=== PATIENT | male | born 1945 | race Caucasian/White ===

== ENCOUNTER 2018-01-27 07:24 | Day surgery (SDC) | payer OTHER, MEDICARE ==
[2018-01-27] MEDS: NS 1,000 ML IV (07:52)
[2018-01-27] MEDS ORDERED: LIDOCAINE 2% INJ 100 MG/5 ML SDV (FOR ANES.) As Ordered (08:52)
[2018-01-27] MEDS ORDERED: PROPOFOL 200 MG/20 ML VIAL As Ordered (08:52)
== END 2018-01-27 09:58 | disposition home or self-care (01) ==
LOC: M OPP 07:24
DX: Z12.11 Encounter for screening for malignant neoplasm of colon (principal); D12.2 Benign neoplasm of ascending colon; K57.30 Diverticulosis of large intestine without perforation or abscess without bleeding; K21.9 Gastro-esophageal reflux disease without esophagitis; K44.9 Diaphragmatic hernia without obstruction or gangrene; K29.70 Gastritis, unspecified, without bleeding; I10 Essential (primary) hypertension; E78.00 Pure hypercholesterolemia, unspecified; Z79.82 Long term (current) use of aspirin; Z79.899 Other long term (current) drug therapy; Z88.8 Allergy status to other drugs, medicaments and biological substances; Z87.891 Personal history of nicotine dependence
CPT/HCPCS: 45380

== ENCOUNTER 2018-10-05 19:52 | Emergency (ER) | payer MEDICARE, OTHER ==
[~2018-10-05] VITALS: Ht 180.3 cm; Wt 84.5 kg
[~2018-10-05 19:52] MED LIST: /HCTZ25TA OR; ASPI1TAB PO; ASPI32ECTA GT; ATOR1TAB19 PO; BAYE325T12 PO; KLOR20TA PO; MAGN64TASA PO; METO1TAB32 PO; OMEP20CA3 PO; PRIN10TA PO; RANI150T PO; SLOWTAB2 PO
[2018-10-05] MEDS ORDERED: PERCOCET 5MG/325MG TAB PO ONE (21:15)
[2018-10-05 21:33] LABS: BASO # 0.1 10^3/uL (0.0-0.2); BASO % 0.7 % (0.0-1.0); EOS # 0.2 10^3/uL (0.0-0.50); EOS % 2.1 % (0.0-3.0); HEMATOCRIT 40.5 % (42.0-52.0); HEMOGLOBIN 13.5 g/dl (13.5-17.5); LYMPH # 1.8 10^3/uL (1.5-4.5); LYMPH % 25.3 % (24.0-44.0); MEAN CORPUSCULAR HEMOGLOBIN 28.5 pg (27.0-33.0); MEAN CORPUSCULAR HGB CONC 33.3 g/dl (32.0-36.5); MEAN CORPUSCULAR VOLUME 85.6 fl (80.0-96.0); MONO # 0.6 10^3/uL (0.0-0.8); MONO % 8.8 % (0.0-5.0); NEUTROPHILS # 4.5 10^3/uL (1.8-7.7); PLATELET COUNT, AUTOMATED 199 10^3/uL (150-450); RED BLOOD COUNT 4.73 10^6/uL (4.30-6.10); WHITE BLOOD COUNT 7.2 10^3/uL (4.0-10.0)
[2018-10-05 22:04] LABS: CALCIUM LEVEL 8.2 MG/DL (8.8-10.2); CREATININE FOR GFR 1.27 MG/DL (0.70-1.30); GLOMERULAR FILTRATION RATE 59.3 (>42)
--- NOTE | 2018-10-05 22:18 | REPVR ---
EXAM: CT Thoracic Spine Without Contrast EXAM DATE/TIME: 10/05/2018 9:44 PM CLINICAL HISTORY: 73 years old, male; Pain; Pain in thoracic spine; Additional info: Back pain eval for FX TECHNIQUE: Axial computed tomography images of the thoracic spine without intravenous contrast. All CT scans at this facility use at least one of these dose optimization techniques: automated exposure control; mA and/or kV adjustment per patient size (includes targeted exams where dose is matched to clinical indication); or iterative reconstruction. Coronal and sagittal reformatted images were created and reviewed. COMPARISON: No relevant prior studies available. FINDINGS: Vertebrae: There is scoliosis of the thoracic spine. There is no evidence of fracture. The facet joints appear in alignment. There is anterior osteophyte formation of the thoracic spine. Discs/Spinal canal/Neural foramina: There is no evidence of central spinal canal stenosis. There is no evidence of soft tissue swelling. IMPRESSION: 1. Degenerative changes and scoliosis. 2. No evidence of fracture. Electronically signed by: Nelson Garg On 10/05/2018 22:18:14 PM
--- NOTE | 2018-10-05 22:28 | REPVR ---
EXAM: CT Lumbar Spine Without Contrast EXAM DATE/TIME: 10/05/2018 9:44 PM CLINICAL HISTORY: 73 years old, male; Pain; Low back pain; Additional info: Back pain eval for FX TECHNIQUE: Axial computed tomography images of the lumbar spine without intravenous contrast. All CT scans at this facility use at least one of these dose optimization techniques: automated exposure control; mA and/or kV adjustment per patient size (includes targeted exams where dose is matched to clinical indication); or iterative reconstruction. Coronal and sagittal reformatted images were created and reviewed. COMPARISON: No relevant prior studies available. FINDINGS: There is scoliosis lumbar spine convexity to the left. There is no evidence of fracture or. Probable large cyst right kidney. Probable large cyst left kidney. I would correlate with ultrasound however. There is calcification of the aorta consistent with atherosclerotic changes. There is no evidence of acute fracture or. L5-S1: There is narrowing of the disc space with mild posterior osteophyte formation. There is severe left L5 neural foramina narrowing. L4-L5: There is a large posterior disc protrusion and grade 1 spondylolisthesis of L4 on L5. This produces severe central spinal canal stenosis and severe bilateral L4 neural foramina narrowing. There is severe facet hypertrophy. L3-L4: There is moderate disc protrusion causing mild impression on the thecal sac. L2-L3: There is posterior osteophyte formation causing mild impression on the thecal sac. L1-L2: There is a large posterior osteophyte causing moderate impression on the thecal sac. There is severe degenerative changes of the vertebral endplates with sclerosis of the endplates and narrowing of disc space L1-L2. IMPRESSION: 1. No evidence of fracture. 2. Degenerative changes as described above including severe central spinal canal stenosis and neural foramina narrowing L4-L5. 3. Probable large cysts right and left kidney but this should be confirmed with ultrasound. Electronically signed by: Nelson Garg On 10/05/2018 22:28:17 PM
[2018-10-05] MEDS ORDERED: PERC5TAB12 PO (22:55)
[2018-10-05 23:00] VITALS: BP 104/74
--- NOTE | 2018-10-07 08:19 | ED PDOC ---
Post-Departure Follow-Up dr rob faxed formal report of ct c ls spine,for fu Kristy Bass MD Oct 07, 2018 08:19
== END 2018-10-05 23:10 | disposition home or self-care (01) ==
LOC: EDBD 19:52 → M ED 22:48
DX: M48.00 Spinal stenosis, site unspecified (principal); M54.9 Dorsalgia, unspecified

== ENCOUNTER 2019-06-10 07:36 | Inpatient (IN) | payer MEDICARE, OTHER ==
[~2019-06-10] VITALS: Ht 177.8 cm; Wt 87.8 kg
[~2019-06-10 07:36] MED LIST changes: -/HCTZ25TA OR; -ASPI1TAB PO; +ASPI81TA26 PO; +HYDR-3644 OR; +PERC5TAB12 PO
[2019-06-10] MEDS ORDERED: ISOVUE-370 76% 100ML VIAL (Q9967) As Ordered ONE (08:25)
--- NOTE | 2019-06-10 09:12 | REP ---
CT BRAIN WITHOUT IV CONTRAST: COMPARISON: 07/05/2013. There is mild atrophy. There is no midline shift or mass effect. There are minor periventricular small vessel ischemic changes. No acute hemorrhage is seen. Old small parenchymal calcification is seen in the left temporal lobe. There is a stable small area of increased density in the right posterior thalamic region. There is no acute intracranial hemorrhage or extra-axial fluid collection. Falx calcifications are noted. There are mild vascular calcifications in the carotid siphons. There is mucosal thickening and fluid in the right ethmoids. There is mild mucosal thickening in the left sphenoid sinus. There is a retention cyst or polyp in the right maxillary sinus 1 cm in diameter. IMPRESSION: No acute intracranial findings. Electronically Signed by Kendall Mcclelland MD 06/11/2019 05:47 P
--- NOTE | 2019-06-10 09:13 | REP ---
CHEST, SINGLE VIEW: Single view of the chest is performed and compared to prior study of 07/24/2015. There is bibasilar fibroatelectatic change without consolidating infiltrate. The heart does not appear to be significantly enlarged. There is tortuosity of the thoracic aorta. IMPRESSION: Bibasilar fibroatelectatic change. Electronically Signed by Kendall Mcclelland MD 06/11/2019 05:47 P
[2019-06-10 09:18] LABS: BASO # 0.1 10^3/uL (0.0-0.2); BASO % 0.6 % (0.0-1.0); EOS # 0.1 10^3/uL (0.0-0.5); EOS % 1.6 % (0.0-3.0); HEMATOCRIT 31.2 % (42.0-52.0); HEMOGLOBIN 10.3 g/dl (13.5-17.5); LYMPH # 1.4 10^3/uL (1.5-5.0); MEAN CORPUSCULAR HEMOGLOBIN 28.7 pg (27.0-33.0); MEAN CORPUSCULAR VOLUME 86.9 fl (80.0-96.0); MONO # 0.6 10^3/uL (0.0-0.8); MONO % 7.1 % (0.0-5.0); NEUTROPHILS # 6.7 10^3/uL (1.5-8.5); NEUTROPHILS % 74.3 % (36.0-66.0); PLATELET COUNT, AUTOMATED 193 10^3/uL (150-450); RED BLOOD COUNT 3.59 10^6/uL (4.30-6.10)
[2019-06-10] MEDS ORDERED: ACET-897 PO (09:25)
[2019-06-10] MEDS ORDERED: LISI-538 PO (09:25)
[2019-06-10] MEDS ORDERED: CALC1TAB74 PO (09:25)
--- NOTE | 2019-06-10 09:28 | REP ---
CT ANGIOGRAM OF THE CAROTID ARTERIES: CT angiogram carotid arteries performed following the intravenous administration of 100 mL of Isovue-370. Sagittal, coronal, and 3D MIP reconstruction images are performed. There is mild scattered atherosclerotic calcifications of the aortic arch and carotid bulbs and proximal internal carotid arteries. There is no evidence of internal carotid artery occlusion or significant stenosis. Vertebral arteries are patent. They appear fairly symmetrical bilaterally. There is moderate narrowing of the proximal left subclavian artery. Right subclavian artery is patent. Visualized lung apices are clear. There are degenerative changes of the spine. No adenopathy is seen in the soft tissues of the neck. IMPRESSION: No evidence of carotid artery occlusion or significant stenosis. Electronically Signed by Kendall Mcclelland MD 06/11/2019 05:48 P
--- NOTE | 2019-06-10 09:31 | REP ---
CT ANGIOGRAM BRAIN: CT angiogram of the brain is performed following the intravenous administration of 100 mL of Isovue-370. Sagittal, coronal and 3D MIP reconstruction images are performed. Vertebral arteries and basilar artery are patent without definite stenosis. There is mild calcification in the carotid siphons bilaterally with mild narrowing. Anterior, middle and posterior cerebral arteries are patent and symmetrical without visible narrowing. Anterior communicating arteries are patent. There is a patent left posterior communicating artery. There may be a tiny right posterior communicating artery. I see no aneurysm or AVM. IMPRESSION: No evidence of intracranial artery occlusion or significant stenosis. Electronically Signed by Kendall Mcclelland MD 06/11/2019 05:48 P
[2019-06-10 09:35] LABS: INR 1.1
[2019-06-10 09:36] LABS: PARTIAL THROMBOPLASTIN TIME 31.9 SECONDS (25.0-38.4)
[2019-06-10 09:39] LABS: CK-MB VALUE MASS 1.4 NG/ML (<3.6); CPK CREATINE PHOSPHOKINASE 102 U/L (39-308); MB/CK RELATIVE INDEX 1.37 (< OR =4); TROPONIN I < 0.02 NG/ML (< 0.10)
[2019-06-10] MEDS ORDERED: ATORVASTATIN 20 MG TAB PO ONE (11:00)
[2019-06-10] MEDS: ASPIRIN 325 MG TAB PO SCH (11:04)
[2019-06-10] MEDS ORDERED: ACETAMINOPHEN 500 MG TAB PO ONE (11:30)
[2019-06-10] MEDS ORDERED: ACETAMINOPHEN 500 MG TAB PO PRN (11:30)
[2019-06-10] MEDS: GABAPENTIN 100 MG CAP PO SCH ×4 (14:30→20:23)
[2019-06-10] MEDS ORDERED: CLOPIDOGREL 75 MG TAB PO SCH (15:00)
[2019-06-10] MEDS ORDERED: CLOPIDOGREL 75 MG TAB PO ONE (15:15)
--- NOTE | 2019-06-10 15:31 | REP ---
CT of the brain without IV contrast: Comparisons are the study performed at 08:21 a.m. earlier today and a prior study of 07/05/2013. There is no hemorrhage. There is no edema, mass effect or midline shift. There is mild diffuse cortical atrophy, unchanged. The cortical stripe is unremarkable. There is a chronic calcification in the left temporal lobe, unchanged from both prior studies. There are degenerative calcifications of the falx, unchanged. There is ethmoid sinusitis, unchanged from study earlier today. There is a right maxillary sinus polyp/cyst, unchanged from study earlier today. Impression: No hemorrhage, edema, mass effect or shift. No change from study earlier today or from 07/05 2013. Electronically Signed by Kendall Penn MD 06/10/2019 03:22 P
[2019-06-10 15:45] VITALS: BP 132/78
--- NOTE | 2019-06-10 15:46 | ECGEPIP ---
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
[2019-06-10] MEDS ORDERED: traMADol 50 MG TAB PO ONE (17:00)
[2019-06-10] MEDS ORDERED: LIDOCAINE 5% (LIDODERM) PATCH TD SCH (17:00)
[2019-06-10] MEDS ORDERED: NS 1,000 ML IV ONE (17:00)
[2019-06-10] MEDS: LIDOCAINE 5% (LIDODERM) PATCH TD SCH (17:10)
--- NOTE | 2019-06-10 19:07 | HPE ---
DATE OF ADMISSION: 06/10/2019 CHIEF COMPLAINT: Left face, arm, and leg numbness. HISTORY OF PRESENT ILLNESS: This is a 74-year-old male with a past medical history significant for recent L4-5, S1 laminectomy and fusion surgery this past Wednesday, [facility], by Dr. Richardson. Had been discharged home and had been dealing with his pain using Tylenol. Woke up at 5 o'clock this morning, awakening his at 6:30 complaining of feeling numbness in the left face, arm, and leg. Patient had word-finding difficulties and was very slow to speak. According to the , he was appropriate, but he was stuttering and taking a few seconds before he could get the words out. Since he had been discharged he had been doing well at home and was getting up. Usually lies in bed or reclining chair for a few days with some difficulty sleeping at night. Patient had been off of his aspirin due to recent surgery, when he was instructed not to take any antiplatelet medications for 7 days. Patient's then called the orthopedic surgeon due to this neurologic change with numbness along the left leg. They had encouraged them to call emergency medical services (EMS). When EMS arrived, patient's symptoms had slightly resolved. On arrival to the emergency room (ER), the left-sided facial numbness has improved slightly. CT at 8:36 a.m. of the head showed no acute intracranial findings. CT angiogram (CTA) of the neck shows no evidence of carotid artery occlusion or significant stenosis. CTA of the brain showed no evidence of intracranial artery occlusion or significant stenosis. Dr. Phoenix, emergency room physician, contacted [facility] due to recent lumbar laminectomy. Patient was not a candidate for tPA. Family was made aware, and hospitalist was called to admit for workup of cerebrovascular accident (CVA) and treatment. Patient was given one dose of 325 mg of aspirin. He then developed worsening symptoms with increasing numbness at around 1:30 p.m., at which point he was re-imaged with repeat CT showing no significant change. No hemorrhage, edema, mass effect, or shift. At this point, neurologist motion picture cameraman, Dr. Beauchamp, recommended addition of Plavix 75 mg as well as gabapentin 100 three times a day as well as permissive hypertension. In the ER his blood pressure was ranging from 111-125. He was given normal saline 1 liter bolus for systemic hypertension goal of 160-180. Patient's telemetry strips remained sinus rhythm. EKG with sinus with no arrhythmias. Patient's glucose on arrival was within normal at 105. PAST MEDICAL HISTORY: 1. Hypertension. 2. Reflux disease. 3. Alcoholic cardiomyopathy. Follows with mental health counselor, Dr. Crooks. 4. Hypercholesterolemia. PAST SURGICAL HISTORY: 1. Left hand surgery with screw placement due to trauma. 2. Left shoulder rotator cuff injury. 3. Hernia repair. 4. Left knee arthroscopy. 5. L4-5, S1 laminectomy with fusion surgery this past Wednesday, May 2019. HOME MEDICATIONS: - Aspirin has been held due to recent surgery, but usually takes 81 mg daily. - atorvastatin 10 mg at bedtime - vitamin D/calcium 600/400 two tablets twice a day - acetaminophen 1 gram by mouth three times a day as needed for pain - lisinopril 20 mg daily - magnesium oxide 128 mg twice a day - metoprolol 25 mg at bedtime - ranitidine 150 twice a day ALLERGIES: OXYCODONE, causing nausea. Usually uses just Tylenol for pain. SOCIAL HISTORY: Lives with at home. Quit smoking in 1968. Previously smoked two packs per day. Chronic alcoholic. Quit 6 years ago due to ischemic cardiomyopathy. 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 [place] and a back door and railing recently placed by his [id number]. Lives at home with his . REVIEW OF SYSTEMS: Per history of present illness (HPI). A 12-point system otherwise negative. PHYSICAL EXAMINATION: Temperature 98.3, pulse 109, sinus, respiratory rate 19, blood pressure 131/100, 94% on room air. Generally, patient does have a mild left-sided facial droop. He does have word-finding difficulties. It takes him about 2-3 seconds to form his words. He does not have any significant slurring of speech. He is comprehensible. Tongue is midline. No pronator drift. Patient has previous left hand surgery with some chronic contraction with flexion at the wrist. He has decreased sensation on the left face, forehead, cheeks, and chin as well as along the left upper and lower arm, left leg as well. Motor function is intact, 5/5 times four extremities but limited due to pain in the back and unable to fully raise bilateral lower extremities due to severe pain in his back. Patient does have a stage II ulcer located in the lumbar area and point tenderness. LABORATORY DATA: White count 9, hemoglobin 10, hematocrit 31, platelet count 193. Total CK 102, MB fraction 1.4, troponin less than 0.02, INR 1.10, PTT 31, PT of 14. Sodium 139, potassium 3.5, chloride 104, bicarbonate 24, BUN 9, creatinine is 0.9, glucose 105. IMAGING STUDIES: June 10, CTA of the neck: No evidence of carotid artery occlusion or significant stenosis. CT of the head at 8 a.m.: No acute intracranial finding. Chest x-ray: Bibasilar fibroatelectatic changes. Repeat CT of the head at 1422: No hemorrhage, edema, mass effect, or shift. No change from prior study. ASSESSMENT AND PLAN: This is a 74-year-old male with a history of hypertension, reflux, prior history of smoking, alcoholic cardiomyopathy, hypercholesterolemia, chronic back pain with recent L4-5, S1 laminectomy and fusion, presents with acute onset of left-sided facial, arm, and leg numbness without motor dysfunction with slight word-finding difficulty, slow to speak but appropriate. This was documented at 6:30 a.m. by the . At 8 a.m., imaging studies were negative. Repeat imaging studies at 1422 were also negative. Echocardiogram is pending. Telemetry with sinus rhythm. CURRENT ISSUES: 1. Left-sided numbness with possible thalamic stroke. Patient is currently on aspirin and Plavix, which has been discussed with the patient's orthopedic surgeon, phone number ; however, should the patient require more powerful anticoagulant, such as Eliquis, should atrial fibrillation or atrial flutter be seen on telemetry, orthopedic surgeon says it would be an increase in risk. Neurologist, Dr. Beauchamp, has been made aware of the recent change in patient's clinical status and did recommend a repeat CT of the head and addition of gabapentin along with initially administered aspirin 325 daily as well as statin 20 mg. At this point, patient will be kept on every 4-hour neurologic checks for any new mental status changes or neurological deficits. 2. Recent laminectomy, L4-5, S1 laminectomy with fusion surgery. Still at risk of bleeding with more powerful anticoagulants. According to Nelida, orthopedic surgeon motion picture cameraman for Dr. Richardson , aspirin and Plavix should be okay. There would be an increased risk of bleeding should the patient require more powerful anticoagulants, like Eliquis, Pradaxa, or Xarelto. At this time, there is minimal risk of bleeding in the back. Patient will be kept on the Tylenol that he was prescribed, 1 gram three times a day as needed for pain. He did get some relief with tramadol, for which he was given one extra dose. Additional opioids or sedatives will be avoided, as the patient does require every 4-hour neurologic checks. 3. Hypertension. We have discontinued the patient's home antihypertensives, as we are focusing on permissive hypertension in light of the acute stroke. Normal saline intravenous (IV) bolus has been given. 4. Reflux disease, stable. 5. History of alcoholic ischemic cardiomyopathy. Follows with Dr. Crooks. Repeat echo has been ordered. 6. Deep vein thrombosis (DVT) prophylaxis with compression stockings. 7. Lumbar decubitus. Physical therapy (PT) evaluate and treat for wound care. MTDD
[2019-06-10 20:00] VITALS: BP 110/64
[2019-06-10] MEDS: NS 1,000 ML IV SCH (20:22)
[2019-06-10] MEDS: FAMOTIDINE 20 MG TAB PO SCH (20:23)
[2019-06-10] MEDS: MAGNESIUM CHLORIDE 64 MG TABCR (SLO MAG) PO SCH (20:23)
[2019-06-10] MEDS: **NOTE PATIENT COMMENT** MISC XX SCH (20:44)
[2019-06-10] MEDS ORDERED: **NOTE PATIENT COMMENT** MISC XX SCH (21:00)
[2019-06-10] MEDS ORDERED: METOPROLOL SUCC *XL* 25MG TAB (TopROL *XL*) PO SCH (21:00)
[2019-06-10 23:59] VITALS: BP 116/56
[2019-06-11 04:00] VITALS: BP 130/77
[2019-06-11] MEDS: NS 1,000 ML IV SCH ×3 (05:15→21:23)
[2019-06-11 05:33] LABS: HEMOGLOBIN 9.7 g/dl (13.5-17.5); MEAN CORPUSCULAR HEMOGLOBIN 28.3 pg (27.0-33.0); MEAN CORPUSCULAR HGB CONC 32.3 g/dl (32.0-36.5); MEAN CORPUSCULAR VOLUME 87.5 fl (80.0-96.0); PLATELET COUNT, AUTOMATED 218 10^3/uL (150-450); RED BLOOD COUNT 3.43 10^6/uL (4.30-6.10); WHITE BLOOD COUNT 7.3 10^3/uL (4.0-10.0)
[2019-06-11 06:00] LABS: BLOOD UREA NITROGEN 12 MG/DL (7-18); CALCIUM LEVEL 8.4 MG/DL (8.8-10.2); CARBON DIOXIDE LEVEL 24 MEQ/L (21-32); CHLORIDE LEVEL 107 MEQ/L (98-107); CHOLESTEROL LEVEL 99 MG/DL (<200); CHOLESTEROL RISK RATIO 2.675 (<5); CREATININE FOR GFR 0.87 MG/DL (0.70-1.30); GLOMERULAR FILTRATION RATE > 60.0 (>42); GLUCOSE, FASTING 84 MG/DL (70-100); HDL CHOLESTEROL 37 MG/DL (>40); LDL CHOLESTEROL 43 MG/DL (<100); MAGNESIUM LEVEL 1.9 MG/DL (1.8-2.4); NON-HDL-C 62 MG/DL; POTASSIUM SERUM 3.8 MEQ/L (3.5-5.1); SODIUM LEVEL 141 MEQ/L (136-145); TRIGLYCERIDES LEVEL 95 MG/DL (<150)
--- NOTE | 2019-06-11 06:50 | ECHO ---
DATE OF PROCEDURE: 06/10/2019 REFERRING PHYSICIAN: Dr. Balbuena INDICATION: Cerebrovascular accident. HEIGHT: 170 cm WEIGHT: 83 kg DIMENSIONS: IVS: 1.1 LV: 4.0 LVPW: 1.1 LA: 3.6 Aorta: 3.3 IVC: 1.6 Mitral E wave velocity 67, A-wave: 80 E prime septal: 6.5 E prime lateral: 9.4 FINDINGS: The study is of very limited technical quality with poor visualization. The patient is in sinus rhythm. Left ventricle is of normal size. I estimate probably normal LV systolic function, but based on limitation of the study even substantial wall motion abnormality could be easily missed. Right ventricle does not appear grossly enlarged. Both atria appear normal. Aortic valve was poorly visualized, but appears at least somewhat sclerotic, but mobility is preserved. Pulmonic and tricuspid valves appear reasonably normal. Pulmonic valve was not well seen. No pericardial effusion is noted. Aortic root and aortic arch appear normal. Abdominal aorta was not well seen. Doppler interrogation revealed no significant aortic stenosis or insufficiency. Same applies for mitral valve. The right-sided heart valves were not well seen. Mitral inflow pattern and tissue Doppler imaging of mitral annulus reveal grade 1 diastolic dysfunction. CONCLUSIONS: 1. Study is of markedly limited technical quality. 2. Normal LV size. Probably normal LV systolic function, but due to poor visualization I cannot rule out even substantial wall motion abnormalities. Grade 1 diastolic dysfunction. 3. No significant valvular disease. 4. Likely normal central venous pressure. 5. Unable to estimate pulmonary artery pressure. COMMENTS: Subacute bacterial endocarditis (SBE) prophylaxis is not recommended.
--- NOTE | 2019-06-11 07:41 | REPVR ---
PROCEDURE INFORMATION: Exam: CT Head Without Contrast Exam date and time: 06/11/2019 6:41 AM Clinical history: 74 years old, male; Numbness / parasthesia; Left; Additional info: Left face, arm and leg numbness TECHNIQUE: Imaging protocol: Computed tomography of the head without contrast. Radiation optimization: All CT scans at this facility use at least one of these dose optimization techniques: automated exposure control; mA and/or kV adjustment per patient size (includes targeted exams where dose is matched to clinical indication); or iterative reconstruction. COMPARISON: CT Head without contrast 06/10/2019 2:50 PM FINDINGS: Brain: See Ventricles Finding. Ventricles: There is age related cerebral atrophy with secondary ventricular dilatation. The shea-white matter differentiation is grossly preserved. Bones/joints: Unremarkable. No acute fracture. Sinuses: Visualized sinuses are unremarkable. No fluid levels. Mastoid air cells: Visualized mastoid air cells are well aerated. Soft tissues: Unremarkable. Vasculature: There is moderate calcification of the carotid arteries in their cavernous portions. IMPRESSION: No CT evidence of intracranial hemorrhage, mass effect or midline shift. Electronically signed by: Luis Manuel Knutson On 06/11/2019 07:41:35 AM
[2019-06-11 08:00] VITALS: BP 122/65
[2019-06-11] MEDS: ASPIRIN 325 MG TAB PO SCH (08:08)
[2019-06-11] MEDS: FAMOTIDINE 20 MG TAB PO SCH ×2 (08:08→20:31)
[2019-06-11] MEDS: MAGNESIUM CHLORIDE 64 MG TABCR (SLO MAG) PO SCH ×2 (08:08→20:31)
[2019-06-11] MEDS: CLOPIDOGREL 75 MG TAB PO SCH (08:08)
[2019-06-11] MEDS: GABAPENTIN 100 MG CAP PO SCH ×3 (08:09→20:31)
[2019-06-11] MEDS: LIDOCAINE 5% (LIDODERM) PATCH TD SCH (08:09)
[2019-06-11] MEDS ORDERED: lisinopriL 20 MG TAB PO SCH (09:00)
[2019-06-11] MEDS ORDERED: ATORVASTATIN 20 MG TAB PO SCH (09:00)
[2019-06-11] MEDS ORDERED: ONDANSETRON 4MG/2ML VIAL (J2405) IV ONE (11:00)
[2019-06-11] MEDS ORDERED: NS 1,000 ML IV ONE (11:00)
[2019-06-11] MEDS ORDERED: ONDANSETRON 4MG/2ML VIAL (J2405) IV PRN (11:00)
[2019-06-11] MEDS ORDERED: ATOR1TAB21 PO (11:03)
[2019-06-11] MEDS ORDERED: CLOP75TA2 PO (11:03)
[2019-06-11] MEDS ORDERED: GABA-1171 PO (11:03)
[2019-06-11 12:00] VITALS: BP 137/67
[2019-06-11 16:00] VITALS: BP 132/74
--- NOTE | 2019-06-11 17:03 | IPNPDOC ---
Date Seen The patient was seen on 06/11/19. Progress Note SUBJECTIVE: Tele: sinus. ambulates well independently from bed to bathroom. improved but persistent left face, arm, and leg numbness without weakness. denies headache, but has some nausea given zofran. c/o decreased appetite. no c/o dysuria, urgency, frequency, fever, chills, or abd pain. OBJECTIVE: PHYSICAL EXAMINATION: VITALS: PLS SEE BELOW Generally, patient does have a mild left-sided facial droop. improved word-finding difficulties. improved speech without delay and appears fluent this morning. Tongue is midline. No pronator drift. Patient has previous left hand surgery with some chronic contraction with flexion at the wrist. He has decreased sensation on the left face, forehead, cheeks, and chin as well as along the left upper and lower arm, left leg as well. Motor function is intact, 5/5 times four extremities but limited due to pain in the back and unable to fully raise bilateral lower extremities due to severe pain in his back. Patient does have a stage II ulcer located in the lumbar area and point tenderness. lungs; ctab aebe no wheezing rales, or rhonchi heart: s1S2 rrr no murmurs abd: obese soft nt nd no hsm ext: no edema cyanosis LABORATORY DATA, IMAGING STUDIES, MICROBIOLOGY:reviewed, pls see below ASSESSMENT AND PLAN: This is a 74-year-old male with a history of hypertension, reflux, prior history of smoking, alcoholic cardiomyopathy, hypercholester olemia, chronic back pain with recent L4-5, S1 laminectomy and fusion, presents with acute onset of left-sided facial, arm, and leg numbness without motor dysfunction with slight word-finding difficulty, slow to speak but appropriate. This was documented at 6:30 a.m. by the . At 8 a.m., imaging studies were negative. Repeat imaging studies at 1422 were also negative. Echocardiogram is pending. Telemetry with sinus rhythm. CURRENT ISSUES: 1. Left-sided numbness with possible thalamic stroke. Dr. Beauchamp recommended reduction of ASA from 325 mg to 81 mg. on plavix and high dose lipitor 80 mg qhs. continue tele. negative carotid stenosis. normal echo. pt hse. 2. Recent laminectomy, L4-5, S1 laminectomy with fusion surgery. Still at risk of bleeding with more powerful anticoagulants. According to Nelida, orthopedic surgeon salesperson hearing aids for Dr. Richardson , aspirin and Plavix should be okay. There would be an increased risk of bleeding should the patient require more powerful anticoagulants, like Eliquis, Pradaxa, or Xarelto. At this time, there is minimal risk of bleeding in the back. Patient will be kept on the Tylenol that he was prescribed, 1 gram three times a day as needed for pain. He did get some relief with tramadol, for which he was given one extra dose. Additional opioids or sedatives will be avoided, as the patient does require every 4-hour neurologic checks. 3. Hypertension. We have discontinued the patient's home antihypertensives, as we are focusing on permissive hypertension in light of the acute stroke. Normal saline intravenous (IV) bolus has been given. 4. Reflux disease, stable. 5. History of alcoholic ischemic cardiomyopathy. Follows with Dr. Crooks. Repeat echo normal 6. Deep vein thrombosis (DVT) prophylaxis with compression stockings. 7. Lumbar decubitus. Physical therapy (PT) evaluate and treat for wound care. disposition: 1-2 days VS, I&O, 24H, [facility] Vital Signs/I&O Vital Signs Date Time Temp Pulse Resp B/P (MAP) Pulse Ox O2 Delivery O2 Flow Rate FiO2 06/11/19 12:00 96.6 67 17 137/67 (90) 98 06/10/19 08:45 Room Air I&O- Last 24 Hours up to 6 AM 06/11/19 06:00 Intake Total 2500 ml Output Total 0 ml Balance 2500 ml Laboratory Data 24H LABS Laboratory Tests 2 06/11/19 04:59: Nucleated Red Blood Cells % (auto) 0.0, Anion Gap 10, Glomerular Filtration Rate > 60.0, Calcium Level 8.4L, Magnesium Level 1.9, Triglycerides Level 95, LDL Cholesterol 43, Total Cholesterol 99, Non-HDL Cholesterol (LDL + VLDL) 62, Total HDL Cholesterol 37L, Cholesterol/HDL Ratio 2.675 CBC/BMP Laboratory Tests 06/11/19 04:59 Red Blood Count 3.43 L, Mean Corpuscular Volume 87.5, Mean Corpuscular Hemoglobin 28.3, Mean Corpuscular Hemoglobin Concent 32.3, Red Cell Distribution Width 13.2 MARCOS MARTELL MD Jun 11, 2019 17:03
--- NOTE | 2019-06-11 19:07 | REPVR ---
PROCEDURE INFORMATION: Exam: US Duplex Right Upper Extremity Veins, Limited Exam date and time: 06/11/2019 6:40 PM Clinical history: 74 years old, male; Swelling (edema) of limb; Upper extremity, right; Additional info: Edema R/O dvt TECHNIQUE: Imaging protocol: Real-time Duplex ultrasound of the Right Upper Extremity with 2-D shea scale, color Doppler flow and spectral waveform analysis with image documentation. Limited exam focused on the right upper extremity veins. COMPARISON: No relevant prior studies available. FINDINGS: Right deep veins: Unremarkable. Axillary and brachial veins are patent throughout without thrombus. Normal Doppler waveforms. Normal compressibility and/or augmentation response. Visualized internal jugular and subclavian veins are patent. Right superficial veins: Heterogeneous, occlusive thrombus at the IV site in the cephalic vein with nonocclusive thrombus in the remainder of the visualized cephalic vein. Visualized basilic vein are patent without thrombus. Soft tissues: Mild soft tissue swelling. IMPRESSION: 1. No sonographic evidence of deep vein thrombosis. 2. Superficial thrombus in the cephalic vein, as described above. Electronically signed by: Tushar Garcia On 06/11/2019 19:06:42 PM
--- NOTE | 2019-06-11 19:37 | CR ---
DATE OF CONSULTATION: 06/11/2019 REFERRING PHYSICIAN: Dr. Rosalva Balbuena REASON FOR CONSULTATION: Left arm, face and leg numbness. HISTORY OF PRESENT ILLNESS: Erick Joshi is a 74-year-old man who had lumbosacral laminectomy and fusion on 06/06/2019 due to chronic back pain and lumbosacral spinal stenosis with sciatica. The patient woke up yesterday morning and had no problems. He was having coffee around 6:30 a.m. and developed left-sided facial numbness. Soon he developed numbness of left arm and leg. There was no weakness of his arms and legs. There was no imbalance. He felt changes in his speech as well. His numbness lasted all day yesterday. He woke up this morning and feels significant improvement. He states that his trouble with speech lasted for 5 or 6 hours yesterday. [facility] Stroke Service was called yesterday morning and did not recommend TPA due to purely sensory symptoms and his lumbosacral spine surgery this week. He denies any headaches, neck pain, dysphagia, diplopia, urinary incontinence, falls and loss of consciousness. He denies any symptoms of right side of his body. He was started on aspirin yesterday in the emergency department. He had another episode of left-sided numbness and Plavix was added. This was clarified with his spine surgeon by Dr. Balbuena. The patient states that he had stopped taking aspirin a week before his spine surgery. He did not restart it until he came to the emergency department yesterday. He is unable to have MRI scan of brain due to his metal plate and screw in his left hand and similar hardware in his lower back this week. PAST MEDICAL HISTORY: Hypertension, dyslipidemia, history of alcoholic cardiomyopathy, acid reflux, left hand surgery with screw placement due to trauma, left shoulder surgery, hernia repair, lumbosacral laminectomy and fusion on 06/06/2019, left knee arthroscopic surgery, hernia repair. HOME MEDICATIONS: - aspirin 81 mg by mouth daily which was on hold due to his lumbosacral laminectomy and fusion - Lipitor 10 mg by mouth daily - lisinopril 20 mg by mouth daily - metoprolol 25 mg by mouth daily - magnesium oxide 128 mg by mouth twice a day - Zantac 150 mg by mouth twice a day ALLERGIES: OXYCODONE. SOCIAL HISTORY: He lives with his at home. He quit smoking in 1968. He used to smoke two packs per day. He quit drinking alcohol in 2012. He developed alcoholic cardiomyopathy. 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 REVIEW OF SYSTEMS: All systems were reviewed and found to be noncontributory except as mentioned in history of present illness. FAMILY HISTORY: Noncontributory. PHYSICAL EXAMINATION: Temperature 97.6, pulse 81, respiratory rate 17, blood pressure 122/65. Heart: Regular rate, rhythm. Lungs: Clear to auscultation. Abdomen: Soft, nontender, nondistended. No pedal edema. No musculoskeletal abnormalities. No rash. No signs of meningeal irritation. He complains of back pain due to his recent surgery. The patient is awake, alert, oriented to place, person and time. Normal speech comprehension and repetition. Extraoral muscles are intact. No facial weakness. Tongue and uvula are midline. 5/5 strength in all four extremities. Deep tendon reflexes are 2+ throughout. Normal sensation bilaterally. Gait is antalgic due to his back pain and recent surgery. Plantars are downgoing. No dysmetria. Normal [id number] testing. There is no nystagmus. Recent and distant memory is intact. Visual armas are full to confrontation. DIAGNOSTIC STUDIES: CT scan of head was reported normal three times in last [address] angiography of head and neck was reportedly unremarkable. Hemoglobin was 9.7 with normal basic metabolic profile. ASSESSMENT: 1. Transient ischemic attack affecting right thalamus or posterior limb of internal capsule. 2. A small lacunar stroke cannot entirely be excluded without MRI scan of brain. 3. Left-sided face, arm and leg numbness with alteration in speech. 4. Continue aspirin 81 mg by mouth daily and Plavix 75 mg by mouth daily and Plavix can be discontinued after 21 days. 5. Lipitor 20 mg by mouth daily. His LDL is 43 and HDL 37. 6. Telemetry monitoring and echocardiogram. 7. Follow with our office in 2-3 weeks after hospital discharge. He will closely followup with Dr. Crooks. His telemetry so far showed a few PACs and PVCs with normal sinus rhythm.
[2019-06-11 20:00] VITALS: BP 110/64
[2019-06-11] MEDS: **NOTE PATIENT COMMENT** MISC XX SCH (21:21)
[2019-06-11 23:59] VITALS: BP 108/66
[2019-06-12 04:00] VITALS: BP 122/78
[2019-06-12] MEDS: NS 1,000 ML IV SCH (06:19)
[2019-06-12 08:00] VITALS: BP 123/72
[2019-06-12] MEDS: LIDOCAINE 5% (LIDODERM) PATCH TD SCH (08:58)
[2019-06-12] MEDS: MAGNESIUM CHLORIDE 64 MG TABCR (SLO MAG) PO SCH (08:58)
[2019-06-12] MEDS: CLOPIDOGREL 75 MG TAB PO SCH (08:58)
[2019-06-12] MEDS: GABAPENTIN 100 MG CAP PO SCH (08:59)
[2019-06-12] MEDS: FAMOTIDINE 20 MG TAB PO SCH (08:59)
[2019-06-12] MEDS ORDERED: ASPIRIN 81 MG ENTERIC TAB PO SCH (09:00)
[2019-06-12] MEDS ORDERED: ATORVASTATIN 20 MG TAB PO SCH (09:00)
--- NOTE | 2019-06-12 22:23 | DS.PDOC ---
Discharge Summary General Date of Admission Jun 10, 2019 at 10:44 Date of Discharge 06/12/19 Discharge Summary DISCHARGE DIAGNOSES: RIGHT THALAMIC TIA WITH LEFT FACIAL, ARM, LEG NUMBNESS SPEECH DIFFICULTY WITH WORD FINDING DIFFICULTY HTN TOBACCO SMOKING HISTORY DYSLIPIDEMIA RECENT [id number] AND FUSION SURGERY DISCHARGE MEDICATIONS PLS SEE BELOW DISCHARGE INSTRUCTIONS: FU W PCP AND CONTRACT ATTORNEY IN 1-2WEEKS HOLD BP MEDS FOR SBP<12O HISTORY OF PRESENTING ILLNESS; This is a 74-year-old male with a history of hypertension, reflux, prior history of smoking, alcoholic cardiomyopathy, hypercholesterolemia, chronic back pain with recent L4-5, S1 laminectomy and fusion, presents with acute onset of left-sided facial, arm, and leg numbness without motor dysfunction with slight word-finding difficulty, slow to speak but appropriate. This was documented at 6:30 a.m. by the . At 8 a.m., imaging studies were negative. Repeat imaging studies at 1422 were also negative. Echocardiogram is pending. Telemetry with sinus rhythm. HOSPITAL COURSE: Right thalamic TIA Dr. Beauchamp recommended reduction of ASA from 325 mg to 81 mg. on plavix and high dose lipitor 80 mg qhs. continue tele. negative carotid stenosis. normal echo. pt hse. Recent laminectomy, L4-5, S1 laminectomy with fusion surgery. Still at risk of bleeding with more powerful anticoagulants. According to [place], orthopedic surgeon vocational horticulture instructor for Dr. Richardson , aspirin and Plavix should be okay. There would be an increased risk of bleeding should the patient require more powerful anticoagulants, like Eliquis, Pradaxa, or Xarelto. At this time, there is minimal risk of bleeding in the back. Patient will be kept on the Tylenol that he was prescribed, 1 gram three times a day as needed for pain. He did get some relief with tramadol, for which he was given one extra dose. Additional opioids or sedatives will be avoided, as the patient does require every 4-hour ne urologic checks. Hypertension. We have discontinued the patient's home antihypertensives, as we are focusing on permissive hypertension in light of the acute stroke. Normal saline intravenous (IV) bolus has been given. Reflux disease, stable. History of alcoholic ischemic cardiomyopathy. Follows with Dr. Crooks. Repeat echo normal Deep vein thrombosis (DVT) prophylaxis with compression stockings. Lumbar decubitus. Physical therapy (PT) evaluate and treat for wound care. DISCHARGE PHYSICAL EXAMINATION: VITALS: PLS SEE BELOW Generally improved word-finding difficulties. improved speech without delay and appears fluent this morning. Tongue is midline. No pronator drift. Patient has previous left hand surgery with some chronic contraction with flexion at the wrist. He has decreased sensation on the left face, forehead, cheeks, and chin as well as along the left upper and lower arm, left leg as well. Motor function is intact, 5/5 times four extremities but limited due to pain in the back and unab le to fully raise bilateral lower extremities due to severe pain in his back. Patient does have a stage II ulcer located in the lumbar area and point tenderness. lungs; ctab aebe no wheezing rales, or rhonchi heart: s1S2 rrr no murmurs abd: obese soft nt nd no hsm ext: no edema cyanosis LABORATORY DATA, IMAGING STUDIES, MICROBIOLOGY:reviewed, pls see below TIME SPENT ON DISCHARGE: 30 MIN Vital Signs/I&Os Vital Signs Date Time Temp Pulse Resp B/P (MAP) Pulse Ox O2 Delivery O2 Flow Rate FiO2 06/12/19 08:00 98.0 94 17 123/72 (89) 96 06/10/19 08:45 Room Air I&O- Last 24 Hours up to 6 AM 06/12/19 06:00 Intake Total 4280 ml Output Total 3650 ml Balance 630 ml Discharge Medications Scheduled Aspirin (Aspirin EC) 81 Mg Tab, 81 MG PO DAILY, (Reported) ON HOLD DUE TO SURGERY - BELIEVES HE IS TO RESTART ON 06/13/19 Atorvastatin Calcium (Atorvastatin Calcium) 20 Mg Tablet, 20 MG PO DAILY Calcium Carbonate/Vitamin D3 (Calcium 600-Vit D3 400 Tablet) 1 Each Tablet, 2 TAB PO BID, (Reported) Clopidogrel Bisulfate (Clopidogrel) 75 Mg Tablet, 75 MG PO DAILY Gabapentin (Gabapentin) 100 Mg Capsule, 100 MG PO TID Magnesium Chloride (Mag64) 64 Mg Tabcr, 128 MG PO BID, (Reported) Ranitidine HCl (Ranitidine HCl) 150 Mg Tab, 1 TAB PO BID, (Reported) Scheduled PRN Acetaminophen (Tylenol Extra Strength) 500 Mg Tablet, 1,000 MG PO TID PRN for PAIN, (Reported) Allergies Coded Allergies: acetaminophen (Verified Adverse Reaction, Mild, N/V, 06/10/19) hydrocodone (Verified Adverse Reaction, Mild, N/V, 06/10/19) MARCOS MARTELL MD Jun 12, 2019 22:23
== END 2019-06-12 12:08 | disposition home or self-care (01) | DRG 69 ==
LOC: EDBD 07:36 → M ED 07:36 → M ED INP 10:44 → M PCU 15:45
PROVIDERS: ADMIT General Practice; ATTEND General Practice
DX: G45.9 Transient cerebral ischemic attack, unspecified (principal); I42.6 Alcoholic cardiomyopathy; E78.5 Hyperlipidemia, unspecified; I10 Essential (primary) hypertension; K21.9 Gastro-esophageal reflux disease without esophagitis; Z87.891 Personal history of nicotine dependence; Z79.899 Other long term (current) drug therapy; Z88.5 Allergy status to narcotic agent; Z88.8 Allergy status to other drugs, medicaments and biological substances; Z79.82 Long term (current) use of aspirin; L89.139 Pressure ulcer of right lower back, unspecified stage

== ENCOUNTER → 2021-03-11 | Outpatient (REF) | payer MEDICARE, OTHER ==
[~2021-03-11] MED LIST changes: +ACET-897 PO; +ATOR1TAB21 PO; +CALC1TAB74 PO; +CLOP75TA2 PO; +GABA-1171 PO; +LISI20TA33 PO
[2021-03-11 12:08] LABS: INR 0.98; PROTHROMBIN TIME 13.2 SECONDS (12.5-14.3)
[2021-03-11 12:09] LABS: PARTIAL THROMBOPLASTIN TIME 31.3 SECONDS (24.2-38.5)
== END ==
LOC: M LAB REF 11:09
PROVIDERS: ATTEND Family Medicine
DX: Z00.00 Encounter for general adult medical examination without abnormal findings (principal); M54.5 Low back pain; Z79.01 Long term (current) use of anticoagulants

== ENCOUNTER → 2021-03-13 | Outpatient (REF) | payer MEDICARE, OTHER ==
[2021-03-13 14:01] LABS: INR 0.95; PROTHROMBIN TIME 12.9 SECONDS (12.5-14.3)
[2021-03-13 14:02] LABS: PARTIAL THROMBOPLASTIN TIME 30.5 SECONDS (24.2-38.5)
== END ==
LOC: M LAB REF 12:13
PROVIDERS: ATTEND Family Medicine
DX: Z00.00 Encounter for general adult medical examination without abnormal findings (principal); M54.5 Low back pain; Z79.01 Long term (current) use of anticoagulants

== ENCOUNTER → 2021-11-09 | Outpatient (CLI) | payer MEDICARE, OTHER | LOC: M RAD 09:21 | PROVIDERS: ATTEND Physician Assistant | DX: S50.02XA Contusion of left elbow, initial encounter (principal); S40.022A Contusion of left upper arm, initial encounter; X58.XXXA Exposure to other specified factors, initial encounter; Y92.9 Unspecified place or not applicable ==

== ENCOUNTER → 2021-11-10 | Outpatient (CLI) | payer MEDICARE, OTHER | LOC: M RAD 11:06 | PROVIDERS: ATTEND Physician Assistant | DX: S50.02XA Contusion of left elbow, initial encounter (principal); X58.XXXA Exposure to other specified factors, initial encounter; Y92.89 Other specified places as the place of occurrence of the external cause; Y93.9 Activity, unspecified; Y99.9 Unspecified external cause status ==

== ENCOUNTER → 2022-11-25 | Outpatient (REF) | payer MEDICARE, OTHER | LOC: M LAB REF 16:29 | PROVIDERS: ATTEND Family Medicine | DX: I63.9 Cerebral infarction, unspecified (principal); E07.9 Disorder of thyroid, unspecified ==

== ENCOUNTER 2023-08-22 12:04 | Observation (INO) | payer MEDICARE, OTHER ==
[~2023-08-22] VITALS: Ht 177.8 cm; Wt 86.3 kg
[~2023-08-22 12:04] MED LIST changes: +PYRI25TA2 PO; +RANI15TA PO; +VENL150C43 PO; +VITAD400CA PO
[2023-08-22] MEDS ORDERED: ISOVUE-370 76% 100ML VIAL As Ordered ONE (12:31)
[2023-08-22 12:32] VITALS: BP 166/96
[2023-08-22 12:46] LABS: BASO # 0.1 10^3/uL (0.0-0.2); BASO % 0.8 % (0.0-1.0); EOS # 0.2 10^3/uL (0.0-0.5); EOS % 2.7 % (0.0-3.0); HEMATOCRIT 45.8 % (42.0-52.0); HEMOGLOBIN 15.2 g/dl (13.5-17.5); LYMPH # 1.8 10^3/uL (1.5-5.0); LYMPH % 29.2 % (24.0-44.0); MEAN CORPUSCULAR HEMOGLOBIN 29.2 pg (27.0-33.0); MEAN CORPUSCULAR HGB CONC 33.2 g/dl (32.0-36.5); MEAN CORPUSCULAR VOLUME 87.9 fl (80.0-96.0); MONO # 0.6 10^3/uL (0.0-0.8); MONO % 10.7 % (2.0-8.0); NEUTROPHILS # 3.4 10^3/uL (1.5-8.5); NEUTROPHILS % 56.4 % (36.0-66.0); PLATELET COUNT, AUTOMATED 166 10^3/uL (150-450); RED BLOOD COUNT 5.21 10^6/uL (4.30-6.10)
[2023-08-22 12:58] LABS: INR 1.04; PROTHROMBIN TIME 13.3 SECONDS (12.5-14.5)
[2023-08-22] MEDS ORDERED: LORazepam 2 MG/ML 1ML VIAL IV ONE (15:15)
[2023-08-22] MEDS ORDERED: MOM 30ML SUSPENSION UDC PO PRN (17:50)
[2023-08-22] MEDS ORDERED: ATOR1TAB21 PO (19:44)
[2023-08-22] MEDS ORDERED: VITA500054 PO (19:44)
[2023-08-22] MEDS ORDERED: FLOM0.4C39 PO (19:44)
[2023-08-22] MEDS ORDERED: HOME MED LIST COMPLETE! XX SCH (19:50)
[2023-08-22] MEDS ORDERED: ASPIRIN 81MG CHEW TABLET PO ONE (20:00)
[2023-08-22 20:19] LABS: ALBUMIN 3.4 G/DL (3.2-5.2); BILIRUBIN,DIRECT 0.2 MG/DL (<0.4); BILIRUBIN,TOTAL 0.5 MG/DL (0.3-1.2); CHOLESTEROL RISK RATIO 2.97 (<5); HDL CHOLESTEROL 37.7 MG/DL (>40); LDL CHOLESTEROL 60.1 MG/DL (<100); NON-HDL-C 74.3 MG/DL; TOTAL PROTEIN 6.1 G/DL (5.7-8.2)
[2023-08-22] MEDS: DOCUSATE SODIUM 100MG CAPSULE PO SCH (20:48)
[2023-08-22] MEDS: ATORVASTATIN 20 MG TAB PO SCH (20:48)
[2023-08-22 21:00] VITALS: BP 145/65; TEMP 97.2; O2SAT 96
[2023-08-22 22:00] VITALS: BP 145/65; TEMP 97.2; O2SAT 96
[2023-08-22] MEDS: RIVAROXABAN 10MG TAB (XARELTO) PO SCH (22:07)
[2023-08-23] VITALS (16 sets, daily range): BP systolic 100–140; BP diastolic 60–80; TEMP 96.7–97.7; O2SAT 95–97
[2023-08-23] MEDS ORDERED: NS 1,000 ML IV ONE (00:40)
[2023-08-23 06:55] LABS: MEAN CORPUSCULAR HEMOGLOBIN 29.3 pg (27.0-33.0); MEAN CORPUSCULAR HGB CONC 32.9 g/dl (32.0-36.5); MEAN CORPUSCULAR VOLUME 89.1 fl (80.0-96.0); PLATELET COUNT, AUTOMATED 162 10^3/uL (150-450); WHITE BLOOD COUNT 5.5 10^3/uL (4.0-10.0)
[2023-08-23 07:09] LABS: HEMATOCRIT 40.1 % (42.0-52.0); HEMOGLOBIN 13.2 g/dl (13.5-17.5)
[2023-08-23 07:15] LABS: BLOOD UREA NITROGEN 20 MG/DL (9-23); CALCIUM LEVEL 7.9 MG/DL (8.3-10.6); CARBON DIOXIDE LEVEL 26 MMOL/L (20-31); CHLORIDE LEVEL 110 MMOL/L (98-107); CREATININE FOR GFR 0.98 MG/DL (0.70-1.30); GLOMERULAR FILTRATION RATE > 60.0 (>42); GLUCOSE, FASTING 90 MG/DL (74-106); POTASSIUM SERUM 3.8 MMOL/L (3.5-5.1); SODIUM LEVEL 141 MMOL/L (136-145)
[2023-08-23] MEDS: DOCUSATE SODIUM 100MG CAPSULE PO SCH ×2 (08:16→20:34)
[2023-08-23] MEDS: ASPIRIN 81MG CHEW TABLET PO SCH (08:16)
[2023-08-23] MEDS: RIVAROXABAN 10MG TAB (XARELTO) PO SCH (18:01)
[2023-08-23] MEDS: ATORVASTATIN 20 MG TAB PO SCH (20:34)
[2023-08-24] VITALS: BP 136/84; TEMP 97.7; O2SAT 95
[2023-08-24 04:00] VITALS: BP 139/72; TEMP 97.4; O2SAT 96
[2023-08-24 06:25] LABS: HEMATOCRIT 41.4 % (42.0-52.0); HEMOGLOBIN 13.8 g/dl (13.5-17.5); MEAN CORPUSCULAR HEMOGLOBIN 29.2 pg (27.0-33.0); MEAN CORPUSCULAR HGB CONC 33.3 g/dl (32.0-36.5); MEAN CORPUSCULAR VOLUME 87.7 fl (80.0-96.0); PLATELET COUNT, AUTOMATED 167 10^3/uL (150-450); RED BLOOD COUNT 4.72 10^6/uL (4.30-6.10); WHITE BLOOD COUNT 6.3 10^3/uL (4.0-10.0)
[2023-08-24 06:48] LABS: BLOOD UREA NITROGEN 19 MG/DL (9-23); CALCIUM LEVEL 8.2 MG/DL (8.3-10.6); CARBON DIOXIDE LEVEL 24 MMOL/L (20-31); CHLORIDE LEVEL 111 MMOL/L (98-107); CREATININE FOR GFR 0.92 MG/DL (0.70-1.30); GLOMERULAR FILTRATION RATE > 60.0 (>42); GLUCOSE, FASTING 102 MG/DL (74-106); POTASSIUM SERUM 4.1 MMOL/L (3.5-5.1); SODIUM LEVEL 144 MMOL/L (136-145)
[2023-08-24 08:00] VITALS: BP 132/97; TEMP 97.8; O2SAT 96
[2023-08-24] MEDS: ASPIRIN 81MG CHEW TABLET PO SCH (08:05)
[2023-08-24] MEDS: DOCUSATE SODIUM 100MG CAPSULE PO SCH (08:05)
== END 2023-08-24 12:36 | disposition home or self-care (01) ==
LOC: M ED 12:04 → INTOOBSV 17:50 → M ED INP 17:50 → M MS4PR 20:55
PROVIDERS: ADMIT Student in an Organized Health Care Education/Training Program; ATTEND Student in an Organized Health Care Education/Training Program
DX: G45.9 Transient cerebral ischemic attack, unspecified (principal); I10 Essential (primary) hypertension; K21.9 Gastro-esophageal reflux disease without esophagitis; E78.5 Hyperlipidemia, unspecified; Z86.73 Personal history of transient ischemic attack (TIA), and cerebral infarction without residual deficits; I42.6 Alcoholic cardiomyopathy; F41.9 Anxiety disorder, unspecified; Z79.82 Long term (current) use of aspirin; Z79.899 Other long term (current) drug therapy; Z88.5 Allergy status to narcotic agent; Z88.8 Allergy status to other drugs, medicaments and biological substances
CPT/HCPCS: 36415; 70450; 70496; 70498; 70544; 70551; 71045; 80047; 80048; 80061; 80076; 81001; 85025; 85027; 85610; 85730; 86850; 86900; 86901; 87635; 92522; 92526; 92610; 93005; 93041; 93306; 94760; 95819; 96374; 96375; 97161; 97165; 97530; 99285; G0378; J2060; Q9967

== ENCOUNTER → 2024-08-01 | Outpatient (CLI) | payer MEDICARE, OTHER ==
[~2024-08-01] MED LIST changes: +FAMO20TA5 PO; +FLOM0.4C39 PO; +VITA500054 PO
== END ==
LOC: M RAD 07:11
PROVIDERS: ATTEND Family Medicine
DX: I71.40 Abdominal aortic aneurysm, without rupture, unspecified (principal); F17.200 Nicotine dependence, unspecified, uncomplicated

== ENCOUNTER 2025-01-18 07:57 | Day surgery (SDC) | payer MEDICARE, OTHER ==
[~2025-01-18] VITALS: Ht 177.8 cm; Wt 86.2 kg
[~2025-01-18 07:57] MED LIST changes: -FLOM0.4C39 PO; +TAMS-18 PO
[2025-01-18 09:57] VITALS: BP 113/64; O2SAT 96
== END 2025-01-18 10:01 | disposition home or self-care (01) ==
LOC: M OPP 07:57
PROVIDERS: ATTEND Surgery
DX: D12.6 Benign neoplasm of colon, unspecified (principal); K57.30 Diverticulosis of large intestine without perforation or abscess without bleeding; K64.2 Third degree hemorrhoids; Z86.0100 Personal history of colon polyps, unspecified; Z88.5 Allergy status to narcotic agent; Z79.82 Long term (current) use of aspirin; Z79.899 Other long term (current) drug therapy; Z86.73 Personal history of transient ischemic attack (TIA), and cerebral infarction without residual deficits